=== PATIENT | female | born 1980 | race Asian ===

== ENCOUNTER 2019-01-02 16:35 | Outpatient (CLI) | payer OTHER ==
--- NOTE | 2019-01-02 17:28 | RAD ---
RIGHT KNEE FOUR VIEWS: 01/02/2019 FINDINGS: No fracture or joint space abnormality is seen. There is no sign of joint fluid. IMPRESSION: No acute bony findings. POS: HOME
== END 2019-01-02 16:36 | disposition home or self-care (01) ==
LOC: BURRAD 16:35
PROVIDERS: ATTEND Family Medicine
DX: S80.01XA Contusion of right knee, initial encounter (principal)